=== PATIENT | male | born 1960 | race Caucasian/White ===

== ENCOUNTER 2018-05-20 17:47 | Emergency (ER) | payer OTHER, SELFPAY ==
[2018-05-20 17:48] VITALS: BP 158/102; PULSE 97; RESP 20; TEMP 36.3; O2SAT 96; BMI 31.8
--- NOTE | 2018-05-20 20:16 | ED_ITS ---
HPI - Extremity Problem <Viviane Patel PA-C - Last Filed: 05/20/18 22:29> General Chief complaint: Extremity Problem,Nontraumatic Stated complaint: THINKS INFECTION IN LT ELBOW Time Seen by Provider: 05/20/18 19:51 Source: patient Mode of arrival: ambulatory Limitations: no limitations History of Present Illness HPI Narrative: this 57-year-old gentleman comes in due to concern for skin infection in the left elbow. He states that he noticed a little puncture wound there and some warmth and pain last night, along with increasing redness today. He states that the pain is better now and not really bothersome today. He is not having difficulty moving the elbow. He states he has not had fever. He feels a little bit tired but otherwise is feeling normal. 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 He is healthy aside from borderline hypertension. He states that he did have a right knee cellulitis once where he had MRSA and needed surgical debridement, however this was after he contracted an infection in the [place]. No recent travel or known exposures. Related Data Previous Rx's Medication Instructions Recorded doxycycline monohydrate 100 mg PO BID 9 Days #18 cap 05/20/18 Allergies Allergy/AdvReac Type Severity Reaction Status Date / Time No Known Drug Allergies Allergy Verified 05/20/18 17:52 Exam <Viviane Patel PA-C - Last Filed: 05/20/18 22:29> Narrative Exam Narrative: GENERAL APPEARANCE: Patient sitting comfortably, in no distress. LUNGS: Clear to auscultation bilaterally. HEART: Rate and rhythm regular without murmur, normal S1 and S2, no S3 or S4. DERMATOLOGIC: Left posterior upper extremity there is a warm irregular Patch of erythema extending over the elbow. This is only on the posterior surface. There is a small scabbed puncture in the center. Area is slightly tender. No palpable circumscribed fluctuance or induration. 13 cm at longest diameter. Margins inked MS: Full AROM L. elbow without tenderness NEUROVASCULAR: L. hand warm and pink, sensation grossly intact Initial Vital Signs Initial Vital Signs: Vital Signs Temperature 97.4 F L 05/20/18 17:48 Pulse Rate 97 H 05/20/18 17:48 Respiratory Rate 20 05/20/18 17:48 Blood Pressure 158/102 H 05/20/18 17:48 Pulse Oximetry 96 05/20/18 17:48 <Roddy Beach DO - Last Filed: 05/21/18 00:25> Initial Vital Signs Initial Vital Signs: Vital Signs Temperature 97.4 F L 05/20/18 17:48 Pulse Rate 97 H 05/20/18 17:48 Respiratory Rate 20 05/20/18 17:48 Blood Pressure 158/102 H 05/20/18 17:48 Pulse Oximetry 96 05/20/18 17:48 Course <Viviane Patel PA-C - Last Filed: 05/20/18 22:29> Orders Ordered: Discontinued Medications Doxycycline Hyclate (Vibramycin) 100 mg PO NOW ONE Stop: 05/20/18 20:13 Last Admin: 05/20/18 20:19 Dose: 100 mg Vital Signs - 8 hr 05/20/18 17:48 05/20/18 20:21 Temperature 97.4 F L Pulse Rate 97 H 85 Respiratory Rate 20 16 Blood Pressure 158/102 H 169/93 H Pulse Oximetry 96 96 <Roddy Beach DO - Last Filed: 05/21/18 00:25> Orders Ordered: Discontinued Medications Doxycycline Hyclate (Vibramycin) 100 mg PO NOW ONE Stop: 05/20/18 20:13 Last Admin: 05/20/18 20:19 Dose: 100 mg Vital Signs - 8 hr 05/20/18 17:48 05/20/18 20:21 Temperature 97.4 F L Pulse Rate 97 H 85 Respiratory Rate 20 16 Blood Pressure 158/102 H 169/93 H Pulse Oximetry 96 96 Discharge Plan Departure Patient Disposition: Home Clinical Impression: Cellulitis of left arm Discharge Date/Time: 05/20/18 20:33 Interventions: ED Discharge Assessment Last Done: 05/20/18 20:21 Instructions: DI for Cellulitis -- Adult Activity Restrictions/Additional Instructions: you should get to the closest emergency room as we talked about if you have rapidly spreading redness, increased pain, swelling, high fever or difficulty moving or elbow. Otherwise, please take your 2nd dose of antibiotic in the morning and continue this twice daily (make sure you stop at a pharmacy in the morning and fill the rest of the prescription ). Avoid over use of your elbow. Please take ibuprofen 6-800 mg every 8 hr, or Aleve, 1-2 tabs every 12 hr for pain and swelling. Prescriptions: New doxycycline monohydrate 100 mg capsule 100 mg PO BID 9 Days Qty: 18 RF: 0 Referrals: [facility] [Provider Group] <Roddy Beach, - Last Filed: 05/21/18 00:25> Cosign ED Attending Jarrod Attestation: I was available for consultation during this patient's emergency department encounter
[2018-05-20] MEDS: DOXYCYCLINE HYCLATE 100 MG TABLET PO (20:19)
[2018-05-20 20:21] VITALS: BP 169/93; PULSE 85; RESP 16; O2SAT 96
== END 2018-05-20 20:33 | disposition home or self-care (01) ==
PROVIDERS: Emergency Provider Internal Medicine
DX: L03.114 Cellulitis of left upper limb (principal)
CPT/HCPCS: 99282; 99283

== ENCOUNTER → 2020-06-02 13:37 | Outpatient (CLI) | payer OTHER, SELFPAY ==
[2020-06-04 08:26] LABS: COVID19 Sendout Not Detected (Not Detect)
== END ==
PROVIDERS: Visit Provider Physician Assistant
DX: Z11.59 Encounter for screening for other viral diseases (principal)
CPT/HCPCS: 87635

== ENCOUNTER 2022-08-08 04:01 | Emergency (ER) | payer OTHER, SELFPAY ==
[2022-08-08 04:21] VITALS: BP 209/82; PULSE 90; RESP 18; TEMP 36.3; O2SAT 96; BMI 31.1
--- NOTE | 2022-08-08 07:54 | DI.RAD.S_ITS ---
PROCEDURE: XR ABDOMEN MIN 2V INDICATIONS: constipation TECHNIQUE: 2 views of the abdomen were acquired. COMPARISON: [facility], MR, MR PELVIS PROSTATE SCREENING PROTOCOL, 04/02/2022, 15:01. FINDINGS: Surgical changes and devices: None. Bowel: No pneumoperitoneum. The bowel gas pattern is normal. There is a moderate to prominent amount of stool seen within the colon. Soft tissues: No masses; visualized solid organ contours appear normal in size. No suspicious abdominal calcifications. Bones: No suspicious bony abnormalities. Age-appropriate bony degenerative changes are seen. IMPRESSION: There is a moderate amount of stool seen within the colon, which is consistent with the given history of constipation. Dictated by: Jon Gillette M.D. on 08/08/2022 at 7:43 Approved by: Jon Gillette M.D. on 08/08/2022 at 7:44
[2022-08-08 08:07] VITALS: BP 172/82; PULSE 82; TEMP 37.1; O2SAT 95
--- NOTE | 2022-08-08 08:30 | ED_ITS ---
HPI - Abdominal Pain General Chief Complaint: Abdominal Pain Stated Complaint: Unable to have a bowel movement Time Seen by Provider: 08/08/22 07:54 Source: patient Mode of arrival: Ambulatory History of Present Illness HPI narrative: This is a 61-year-old male with history of hypertension on chlorothiazide. Patient presents with no bowel movement since , patient took 2 senna on Tuesday without any change. He has been taking Excedrin and ibuprofen with increasing pain he has not been able to control. He has not had a bowel m ovement he passing gas. He describes pain more in the left flank and left side of his abdomen it is not on the right. He thinks he might be little bit more distended. He did vomit on Tuesday after taking a bottle of magnesium citrate. Patient has had occasional issues but not persistently. He states a couple months ago he took senna and it resolved his symptoms. Patient denies any prior surgeries. No allergies to medications. No tobacco he drinks a beer daily, no illicit other than occasional marijuana. Related Data Previous Rx's Medication Instructions Recorded oxycodone 5 mg tablet 5 mg PO Q6H PRN pain #10 tabs 08/08/22 tamsulosin 0.4 mg capsule (Flomax) 0.4 mg PO DAILY #7 caps 08/08/22 Allergies Allergy/AdvReac Type Severity Reaction Status Date / Time No Known Drug Allergies Allergy Verified 05/20/18 17:52 Review of Systems Review of Systems ROS Unobtainable: All systems reviewed & are unremarkable except as noted in HPI and below Patient History Surgical History S/P right knee surgery Social History Smoking Status: Never smoker Smoking Status: Never smoker alcohol intake frequency: a few times a month Substance Use Type: does not use Exam Narrative Exam Narrative: GENERAL: Alert and oriented x three, [id number] distress HEENT: Head normocephalic, atraumatic, EOMI, pupils reactive, face symmetric, moist mucous membranes NECK: Supple, full range of motion CARDIOVASCULAR: Regular rate and rhythm without murmurs, rubs or gallops. RESPIRATORY: Breath sounds equal bilaterally, no wheezes rales or rhonchi. ABDOMEN: Soft, nontender. Patient is mildly distended. Hypoactive bowel sounds all 4 quadrants. No guarding or rebound, rigidity, no mass : No CVA tenderness EXTREMITIES: Normal range of motion, no clubbing or edema. Neurovascularly intact NEUROLOGICAL: Cranial nerves II through XII grossly intact. Moving all extremities SKIN: Warm, dry, no petechiae, no rashes or lesions. Initial Vital Signs Initial Vital Signs: Vital Signs Temperature 97.4 F L 08/08/22 04:21 Pulse Rate 90 08/08/22 04:21 Respiratory Rate 18 08/08/22 04:21 Blood Pressure 209/82 H 08/08/22 04:21 Pulse Oximetry 96 08/08/22 04:21 Oxygen Delivery Method 08/08/22 04:21 Course Orders Ordered: ED Orders 08/08/22 07:54 XR abdomen min 2V Stat 08/08/22 08:50 CT abdomen pelvis w con Stat 08/08/22 09:12 Complete Blood Count AUTO DIFF Stat Comprehensive Metabolic Panel Stat Lipase Stat 08/08/22 09:28 EKG-12 Lead Stat 08/08/22 12:21 Urine Microscopic Stat Discontinued Medications Sodium Chloride (Normal Saline 0.9%) 1,000 mls @ 1,000 mls/hr IV BOLUS ONE Stop: 08/08/22 09:49 Last Infusion: 08/08/22 11:11 Dose: 0 mls/hr Documented By: Admin: 08/08/22 09:58 Dose: 1,000 mls/hr Documented By: NR Ketorolac Tromethamine (Ketorolac 30 Mg/Ml Vial) 15 mg IV NOW ONE Stop: 08/08/22 08:51 Last Admin: 08/08/22 09:58 Dose: 15 mg Documented By: NR Ondansetron HCl (Ondansetron 4 Mg/2 Ml Inj) 4 mg IV NOW ONE Stop: 08/08/22 08:51 Last Admin: 08/08/22 09:58 Dose: 4 mg Documented By: NR Tamsulosin HCl (Tamsulosin 0.4 Mg Capsule) 0.4 mg PO NOW ONE Stop: 08/08/22 11:36 Last Admin: 08/08/22 12:33 Dose: 0.4 mg Documented By: AT Consultations Consultation #1: Dr. Neil, urology. Feels we can dispo patient home today he recommends waiting any additional nephrotoxic agents, hydrating at home, tamsulosin, lying on his left side follow-up with the office 1st thing in the morning. He recommends only clears after midnight and if patient is still symptomatic they will possibly take to the OR for stent tomorrow. Patient is to call the office after 830 or 9:00 a.m. with strict return precautions for the ER Time: 12:31 Vital Signs Vital signs: Vital Signs - 8 hr 08/08/22 08:07 08/08/22 12:34 Temperature 98.7 F Pulse Rate 82 75 Respiratory Rate 18 Blood Pressure 172/82 H 159/70 H Pulse Oximetry 95 99 Oxygen Delivery Method Room Air Room Air MDM - Abdominal Pain Lab Data Result diagrams: 08/08/22 09:12 08/08/22 09:12 Labs: Lab Results 08/08/22 08/08/22 08/08/22 Range/Units 09:12 09:12 12:21 WBC 11.2 H (4.5-11.0) X10^3/uL RBC 5.29 (4.5-5.9) X10^6/uL Hgb 14.8 (13.5-17.5) g/dL Hct 43.3 (41-53) % MCV 81.8 (80-100) fL MCH 28.0 (26-34) PG MCHC 34.2 (30-36) % RDW 14.0 (11.6-14.8) % Plt Count 169 (150-400) X10^3/uL Neut % (Auto) 85.3 H (50-75) % Lymph % (Auto) 7.1 L (25-40) % [place] % (Auto) 7.2 (3-14) % Eos % (Auto) 0.0 L (2-4) % Baso % (Auto) 0.4 (0-2) % Neut # (Auto) 9500 H (9700-0750) /uL Lymph # (Auto) 800 L (2239-3007) /uL [place] # (Auto) 800 (0-900) /uL Eos # (Auto) 0 (0-450) /uL Baso # (Auto) 0 (0-100) /uL Sodium 135 L (137-145) mmol/L Potassium 4.2 (3.4-5.1) mmol/L Chloride 92 L (98-107) mmol/L Carbon Dioxide 33 H (22-32) mmol/L BUN 23 H (9-20) mg/dL Creatinine 2.04 H (0.66-1.25) mg/dL Estimated GFR 37 L (>60) mL/min BUN/Creatinine Ratio 11.3 (6-22) Glucose 106 (80-110) mg/dL Calcium 9.0 (8.4-10.2) mg/dL Total Bilirubin 1.7 H (0.2-1.3) mg/dL AST 60 H (17-59) IU/L ALT 85 H (<50) IU/L Alkaline Phosphatase 60 (38-126) U/L Total Protein 7.9 (6.3-8.2) g/dL Albumin 4.5 (3.5-5.0) g/dL Globulin 3.4 (1.7-4.1) g/dL Albumin/Globulin Ratio 1.3 (1.0-2.8) Lipase 29 (23-300) U/L Urine RBC 0-1/hpf (0-5/HPF) Urine WBC 0-1/hpf (0-5/HPF) Urine Bacteria None seen (None) Ur Culture Indicated? Cult not indicated Point of care testing: Urine Dip Bedside Urine Glucose Negative Bedside Urine Bilirubin - Negative Bedside Urine Ketone - Negative Urine Specific [place] 1.015 Bedside Urine Occult Blood - Negative Bedside Urine pH 5.5 Bedside Urine Protein - Negative Bedside Urine Urobilinogen - Negative Bedside Urine Nitrite - Negative Bedside Urine Leukocytes - Negative Esterase Imaging Data Abdominal x-ray: My Impression: Patient does not have air-fluid levels. CT scan - abdomen/pelvis: Radiologist's Impression: Jose M Ponce??61??M??1960 ? Allergy/Adv: No Known Drug Allergies Close Abdomen/Pelvis CT (Signed) Jon Gillette - 08/08/22 Abdomen X-Ray (Signed) Jon Gillette - 08/08/22 [facility]?[address] [address] [address] Scan Report Signed Patient: Jose M Ponce MR#: [id number] : 1960 Acct:[id number] Age/Sex: 61 / M Date of Service: 08/08/22 Loc: ED Accession Number: [id number] ?? Procedure: CT abdomen pelvis w con Ordering Provider: Tiny Rae D.O. PROCEDURE:? CT ABDOMEN PELVIS W CON ? INDICATIONS:? Left back/abd pain, constipation, vomited ? TECHNIQUE:? After the administration of oral and IV contrast, axial sections were acquired from the lung bases to the pubic symphysis.? Coronal and sagittal reformats were performed.? For radiation dose reduction, the following was used:? automated exposure control, adjustment of mA and/or kV according to patient size. ? COMPARISON:? [facility], CR, XR ABDOMEN MIN 2V, 08/08/2022, 8:09. ? FINDINGS:? Image quality:? Excellent.? ? Lung bases:? Unremarkable.? ? Heart:? No significant findings. ? ? ABDOMEN: Liver:? An enlarged, fatty infiltrated liver can be seen.? No focal liver lesion is seen. Gallbladder:? Unremarkable.? ? Biliary ducts:? Unremarkable.? ? Pancreas:? Unremarkable.? ? Spleen:? The spleen is enlarged, measuring 17 cm AP.? No focal splenic lesion is seen. ? Adrenal Glands:? Unremarkable.? ? Kidneys and Ureters:? There is right-sided hydronephrosis, without hydroureter.? On the left, there is moderate prominent hydronephrosis.? There is an obstructing stone seen at the left ureteropelvic junction, on series 6, image 35 and on series 4 image 40 measuring 4 mm and 300 Hounsfield units.? Left-sided perinephric fat stranding can be seen.? Nonobstructing left-sided kidney stones are seen inferiorly, measuring up to 5 mm and 400 Hounsfield units. ? Stomach and Bowel:? Stomach, small bowel loops, and colon are unremarkable.? Peritoneum:? No abnormal intraperitoneal fluid.? No free air.? ? Ventral Wall: ? No hernia.? Abdominal Nodes:? No retroperitoneal or mesenteric adenopathy by size criteria.? Vessels:? Aorta and inferior vena cava are normal in size.? ? PELVIS: Pelvic Organs:? The prostate is enlarged, measuring 6.3 cm transversely. Bladder:? Unremarkable.? ? Pelvic Nodes: No enlarged lymph nodes.? Miscellaneous:? Bilateral fat containing inguinal hernias are seen, right larger than left. ? Bones:? There is focal L5-S1 degenerative change seen.? Milder degenerative changes are seen elsewhere.? ? ? IMPRESSION:? ? There is an obstructing 4 mm stone seen within the left proximal ureter, with associated moderate to severe left-sided hydronephrosis and perinephric fat stranding. ? Nonobstructing left-sided kidney stones are also seen. ? There is moderate right-sided hydronephrosis seen, without a cause of obstruction seen. ? ? Additional findings: Enlarged, fatty liver Splenomegaly Focal L5-S1 degenerative change Enlarged prostate Bilateral fat containing inguinal hernias ? Dictated by: Jon Gillette M.D. on 08/08/2022 at 10:12 ? ? Approved by: Jon Gillette M.D. on 08/08/2022 at 10:21?? ECG Data Attestation: I personally reviewed and interpreted this ECG as follows: Interpretation: Ventricular rate of 72 PA 156 QRS of 94 and QTC of 418. No acute ST elevation depression noted. MDM Narrative Medical decision making narrative: This is a 61-year-old male with what sounds like constipation but has had 1 episode of vomiting, his pain is also more localized to the left side making me question if there are other causes. Particularly if his pain is also in the flank after evaluation plan for labs, CT abdomen pelvis. Patient's labs show acute kidney injury elevated BUN, bilirubin and LFTs are also elevated lipase is normal. CT abdomen pelvis shows a left-sided kidney stone with moderate hydro and some right hydro but no kidney stone. Patient has enlarged prostate but not clearly obstructed. Patient's pain was much improved he received Toradol before his labs had resulted. Patient is much more comfortable at this time his urine does not show signs infection, spoke with Dr. Neil with Urology plan to continue with pain management but avoiding nephrotoxic agents, hydration, tamsulosin, patient is still on his left side and call the office 1st thing in the morning they may take him for ureteral stent in the morning. Patient does not appear to have an infection or septic obstructed stone feel he is safe for discharge home tonight with short follow-up tomorrow. Patient is aware that he is to avoid any solids and be clear liquids only after midnight. Patient and I did discuss keeping him for observation overnight and into tomorrow but he feels comfortable returning home and I think he would be much more comfortable. He is aware of strict return precautions and reasons to return if he is having increasing issues. Discharge Plan Departure Patient Disposition: Home Clinical Impression: Kidney stone on left side, Acute kidney injury, Elevated liver enzymes Instructions: DI for Kidney Stones Activity Restrictions/Additional Instructions: Follow-up tomorrow with Dr. Neil the urologist. Please call around 8:30 or 9:00 a.m. to the office, let them know if you are still having symptoms as Dr. Neil will likely take you to the OR to place a ureteral stent to help treat your kidney stone and hydroureter. If your symptoms have totally resolved they will still need to have your labs rechecked. Your kidney function is decreased today some of this is likely from some dehydration but also from the NSAIDs you have been taking as well as the kidney stone on your left side causing your pain. Your liver enzymes are elevated today this is likely not secondary to your kidneys and should be followed up with her physician for recheck and repeat labs in the next 1 week. Take Flomax daily until gone. Avoid NSAIDs such as ibuprofen, Advil, naproxen or similar medications sees or hard on your kidneys. Can take Tylenol up to a 1000 mg every 6 hours as needed for pain. If in adequate you can take 1-2 tablets of oxycodone every 6 hours. This medication can make you sleepy do not drive, perform hazardous activities or make any major decisions while taking it. This medication will make you constipated please take a stool softener such as Colace once to twice daily until stools are soft and regular. [facility] [place] Please return for fevers, worsening abdominal back or flank pain, persistent vomiting, if you are unable to tolerate oral medication or fluids, inability to urinate, black or bloody stools, passing out or other new or concerning changes. Prescriptions: New tamsulosin [Flomax] 0.4 mg capsule 0.4 mg PO DAILY Qty: 7 0RF oxycodone 5 mg tablet 5 mg PO Q6H PRN (Reason: pain) Qty: 10 0RF Referrals: Consuelo Neil MD [Physician] - Karan Yuen DO [Primary Care Provider] - Visit Report Forms: Patient Portal/API
--- NOTE | 2022-08-08 08:50 | DI.CT.S_ITS ---
PROCEDURE: CT ABDOMEN PELVIS W CON INDICATIONS: Left back/abd pain, constipation, vomited TECHNIQUE: After the administration of oral and IV contrast, axial sections were acquired from the lung bases to the pubic symphysis. Coronal and sagittal reformats were performed. For radiation dose reduction, the following was used: automated exposure control, adjustment of mA and/or kV according to patient size. COMPARISON: [facility], CR, XR ABDOMEN MIN 2V, 08/08/2022, 8:09. FINDINGS: Image quality: Excellent. Lung bases: Unremarkable. Heart: No significant findings. ABDOMEN: Liver: An enlarged, fatty infiltrated liver can be seen. No focal liver lesion is seen. Gallbladder: Unremarkable. Biliary ducts: Unremarkable. Pancreas: Unremarkable. Spleen: The spleen is enlarged, measuring 17 cm AP. No focal splenic lesion is seen. Adrenal Glands: Unremarkable. Kidneys and Ureters: There is right-sided hydronephrosis, without hydroureter. On the left, there is moderate prominent hydronephrosis. There is an obstructing stone seen at the left ureteropelvic junction, on series 6, image 35 and on series 4 image 40 measuring 4 mm and 300 Hounsfield units. Left-sided perinephric fat stranding can be seen. Nonobstructing left-sided kidney stones are seen inferiorly, measuring up to 5 mm and 400 Hounsfield units. Stomach and Bowel: Stomach, small bowel loops, and colon are unremarkable. Peritoneum: No abnormal intraperitoneal fluid. No free air. Ventral Wall: No hernia. Abdominal Nodes: No retroperitoneal or mesenteric adenopathy by size criteria. Vessels: Aorta and inferior vena cava are normal in size. PELVIS: Pelvic Organs: The prostate is enlarged, measuring 6.3 cm transversely. Bladder: Unremarkable. Pelvic Nodes: No enlarged lymph nodes. Miscellaneous: Bilateral fat containing inguinal hernias are seen, right larger than left. Bones: There is focal L5-S1 degenerative change seen. Milder degenerative changes are seen elsewhere. IMPRESSION: There is an obstructing 4 mm stone seen within the left proximal ureter, with associated moderate to severe left-sided hydronephrosis and perinephric fat stranding. Nonobstructing left-sided kidney stones are also seen. There is moderate right-sided hydronephrosis seen, without a cause of obstruction seen. Additional findings: Enlarged, fatty liver Splenomegaly Focal L5-S1 degenerative change Enlarged prostate Bilateral fat containing inguinal hernias Dictated by: Jon Gillette M.D. on 08/08/2022 at 10:12 Approved by: Jon Gillette M.D. on 08/08/2022 at 10:21
[2022-08-08 09:18] LABS: Add Manual Diff / Slide Review NO; Basophils Absolute Auto 0 /uL (0-100); Basophils Percent Auto 0.4 % (0-2); Eosinophils Absolute Auto 0 /uL (0-450); Hematocrit 43.3 % (41-53); Hemoglobin 14.8 g/dL (13.5-17.5); Lymphocytes Absolute Auto 800 /uL (1100-4500); Lymphocytes Percent Auto 7.1 % (25-40); Mean Corpuscular HGB Conc 34.2 % (30-36); Mean Corpuscular Volume 81.8 fL (80-100); Monocytes Absolute Auto 800 /uL (0-900); Monocytes Percent Auto 7.2 % (3-14); Neutrophils Absolute Auto 9500 /uL (1500-7000); Neutrophils Percent Auto 85.3 % (50-75); Platelet Count 169 X10^3/uL (150-400); Red Blood Cell Count 5.29 X10^6/uL (4.5-5.9); White Blood Cell Count 11.2 X10^3/uL (4.5-11.0)
[2022-08-08 09:29] LABS: Alanine Aminotransferase 85 IU/L (<50); Albumin 4.5 g/dL (3.5-5.0); Albumin Globulin Ratio 1.3 (1.0-2.8); Alkaline Phosphatase 60 U/L (38-126); Aspartate Aminotransferase 60 IU/L (17-59); BUN Creatinine Ratio 11.3 (6-22); Bilirubin Total 1.7 mg/dL (0.2-1.3); Blood Urea Nitrogen 23 mg/dL (9-20); Carbon Dioxide 33 mmol/L (22-32); Chloride 92 mmol/L (98-107); Estimated Glomerular Filt Rate 37 mL/min (>60); Globulin 3.4 g/dL (1.7-4.1); Glucose 106 mg/dL (80-110); HEMOLYSIS < 15 (0-50); Lipase 29 U/L (23-300); Potassium 4.2 mmol/L (3.4-5.1); Sodium 135 mmol/L (137-145); Total Protein 7.9 g/dL (6.3-8.2)
[2022-08-08] MEDS: KETOROLAC 30 MG/ML VIAL 15 MG IV (09:58)
[2022-08-08] MEDS: SODIUM CHLORIDE 0.9% 1,000 ML 1000 ML IV (09:58)
[2022-08-08] MEDS: ONDANSETRON 4 MG/2 ML INJ IV (09:58)
[2022-08-08] MEDS: TAMSULOSIN 0.4 MG CAPSULE PO (12:33)
[2022-08-08 12:34] VITALS: BP 159/70; PULSE 75; RESP 18; O2SAT 99
[2022-08-08 13:01] LABS: Bacteria Urine None Seen; Culture Indicated Urine Cult Not Indicated; RBC Urine 0-1/HPF (0-5/HPF); WBC Urine 0-1/HPF (0-5/HPF)
== END 2022-08-08 12:54 | disposition home or self-care (01) ==
PROVIDERS: Emergency Provider Emergency Medicine; PCP Family Medicine
DX: N20.0 Calculus of kidney (principal); N17.9 Acute kidney failure, unspecified; R74.8 Abnormal levels of other serum enzymes; R07.9 Chest pain, unspecified; N40.0 Benign prostatic hyperplasia without lower urinary tract symptoms
CPT/HCPCS: 74019; 74177; 80053; 81003; 81015; 83690; 85025; 93005; 93010; 96361; 96374; 96375; 99284; J1885; J2405; Q9967

== ENCOUNTER → 2022-09-29 12:26 | Outpatient (CLI) | payer OTHER, SELFPAY ==
--- NOTE | 2022-09-29 | DI.US.S_ITS ---
PROCEDURE: US RENAL COMPLETE INDICATIONS: calculus of ureter TECHNIQUE: Real-time scanning was performed of the kidneys and bladder, with image documentation. COMPARISON: [facility], CT, CT ABDOMEN PELVIS W CON, 08/08/2022, 10:37. FINDINGS: Kidneys: Kidneys are normal in size. Right kidney measures 11.5 cm long; left kidney measures 11.7 cm long. Right renal cortical thickness is 0.9 cm; left renal cortical thickness is there 0.7 cm. Renal cortical echotexture is normal. No nephrolithiasis. No suspicious solid mass lesions. There is moderate right-sided hydronephrosis seen. Mild hydronephrosis is seen on the left. A 9 mm nonobstructing shadowing left-sided kidney stone can be seen inferiorly. Bladder: Pre-void bladder volume is 122 mL. Post-void residual is 39 mL. A bladder stone is seen that measures up to 7 mm. On pre-void images, both ureteral jets are noted with color Doppler interrogation. (Of note, ureteral jets may not be detectable in up to 25% of cases due to insufficient differences in specific gravity between ureteral and bladder urine). Miscellaneous: No free pelvic fluid. There is a 1.4 cm right hepatic cyst seen. There is an enlarged prostate, measuring 6.4 x 6.2 x 6.5 cm. IMPRESSION: There is moderate right-sided hydronephrosis. Mild left-sided hydronephrosis is seen. 9 mm shadowing stone seen at the inferior pole of the left kidney. A 7 mm bladder stone can be seen. Moderate postvoid residual, 39 cc. Enlarged prostate. Additional findings: 1.4 cm right hepatic cyst Dictated by: Jon Gillette M.D. on 09/29/2022 at 13:58 Approved by: Jon Gillette M.D. on 09/29/2022 at 14:03
== END ==
PROVIDERS: PCP Family Medicine; Referring Provider Urology; Visit Provider Urology
DX: N13.2 Hydronephrosis with renal and ureteral calculous obstruction (principal); N21.0 Calculus in bladder; N40.0 Benign prostatic hyperplasia without lower urinary tract symptoms; K76.89 Other specified diseases of liver
CPT/HCPCS: 76770

== ENCOUNTER → 2023-02-16 10:15 | Outpatient (CLI) | payer OTHER, SELFPAY ==
--- NOTE | 2023-02-16 | DI.MRI.S_ITS ---
PROCEDURE: MR PELIS WO/W CON INDICATIONS: Elevated prostate specific antigen [PSA] TECHNIQUE: Coronal HASTE, axial T1 FSE with fat saturation, 3-plane nonbreath-hold T2 FSE. After the administration of contrast, dynamic axial, delayed axial and coronal VIBE or 2-D FLASH with fat saturation through the pelvis. Optional diffusion weighted imaging and ADC may be performed. COMPARISON: [facility], CT, CT ABDOMEN PELVIS W CON, 08/08/2022, 10:37. [facility], MR, MR PELVIS PROSTATE SCREENING PROTOCOL, 04/02/2022, 15:01. FINDINGS: Image quality: Prostate: Gland size is 7.2 x 5.8 x 5 cm; ellipsoid gland volume is 109 mL. No significant foci of intrinsic T1 hyperintensity to suggest hemorrhage. Multiple BPH nodules. Median lobe hypertrophy. Lesion size(s): Lesion 1: 0.6 cm, (12/22), not significantly changed. Lesion 2: 0.7 cm, (12/19), not significantly changed. Lesion location(s) (sector): Lesion 1: Left apex peripheral zone Lesion 2: Left apex transitional zone Lesion description: Lesion 1: Oval Lesion 2: Oval T2 weighted imaging (T2WI) morphology score: Lesion 1: 3 Lesion 2: 3 Diffusion weighted imaging (DWI) morphology score: Lesion 1: 3 Lesion 2: 3 Dynamic contrast enhancement (DCE): Lesion 1: Absent Lesion 2: Absent Lesion PI-RADS score: Lesion 1: PI-RADS 3 Lesion 2: PI-RADS 3 Genitourinary system: Small stones in the right urinary bladder. Distal ureters are non distended. Bowel and peritoneum: No pathologic free pelvic fluid. Inferior colon and small bowel loops are normal in caliber. A few colonic diverticuli. Nodes and vessels: No pelvic or inguinal adenopathy by size criteria. Iliac vessels are normal in caliber. Soft tissues: Fat containing inguinal hernias. Bones: Marrow demonstrates normal overall signal, without lesions to suggest metastases. IMPRESSION: 1. Marked prostatomegaly with median lobe hypertrophy. Small stones in the bladder. 2. No PI-RADS 4 or 5 observation for targeted biopsy. 3. Small PI-RADS 3 observations are unchanged. Dictated by: Robert Russo M.D. on 02/16/2023 at 12:19 Approved by: Robert Russo M.D. on 02/16/2023 at 12:37
== END ==
PROVIDERS: PCP Family Medicine; Referring Provider Urology; Visit Provider Urology
DX: N40.0 Benign prostatic hyperplasia without lower urinary tract symptoms (principal); N21.0 Calculus in bladder; K57.90 Diverticulosis of intestine, part unspecified, without perforation or abscess without bleeding; R97.20 Elevated prostate specific antigen [PSA]; Z80.42 Family history of malignant neoplasm of prostate
CPT/HCPCS: 72197

== ENCOUNTER 2025-06-13 06:43 | Day surgery (SDC) | payer OTHER, SELFPAY ==
--- NOTE | 2025-06-13 | PATH_ITS ---
[facility] Accession Number: [id number] No. of containers..02 Tissue . 01 Material submitted: . PART A: colon - CECAL POLYP PART B: colon - COLON, DESCENDING POLYP . 01 Diagnosis: A. CECAL POLYP: Tubular adenoma. . B. DESCENDING COLON POLYP: Tubular adenoma. MRV 06/24/2025 1244 Local . 01 Electronically signed: . Eli Rosen MD, Pathologist NPI- [id number] . 01 Gross description: . Received are two formalin-filled containers both labeled with the patient's name. . A. In a container labeled cecal polyp, is one fragment of [place], soft tissue which measures 0.6 x 0.5 x 0.3 cm. The specimen is totally submitted in cassette A1. B. In a container labeled descending colon polyp, is one fragment of [place], soft tissue which measures 0.4 x 0.3 x 0.3 cm. The specimen is totally submitted in cassette B1. ([id number]) /BRANT 06/21/2025 0027 Local . 01 Pathologist provided ICD-10: D12.0, D12.4 . 01 CPT . 834226, 316255 Specimen Comment: A courtesy copy of this report has been sent to [facility] Pathology Performed at: [address] [address], [place], [place] [id number] MD Maximo Mcgraw MD Phone: [phone]
--- NOTE | 2025-06-13 05:45 | P.HP_ITS ---
History of Present Illness History of Present Illness Date Patient Seen: 06/13/25 Time Patient Seen: 05:46 Chief complaint: Colonoscopy Narrative: 64yo M presents for screening colonoscopy this morning. Prior exam 13 years at [facility]. [facility] Surgical History S/P right knee surgery Meds Home Medications and Allergies Home Medications ?Medication ?Instructions ?Recorded ?Confirmed ?Type oxycodone 5 mg tablet 5 mg PO Q6H PRN pain #10 tab s 08/08/22 Rx tamsulosin 0.4 mg capsule (Flomax) 0.4 mg PO DAILY #7 caps 08/08/22 Rx sodium,potassium,mag sulfates 17.5 See Rx Instructions PO .COMPLEX 04/29/25 Rx gram-3.13 gram-1.6 gram oral soln #354 mL (Suprep Bowel Prep Kit) Allergies Allergy/AdvReac Type Severity Reaction Status Date / Time No Known Drug Allergies Allergy Verified 05/20/18 17:52 Exam Narrative Exam Narrative: Const General: healthy appearing, comfortable and no acute distress Orientation: alert and oriented x3 HENMT Ears: hearing grossly normal bilaterally Eyes Visual Oliveira: normal visual oliveira by confrontation Conjunctivae: conjunctivae normal Sclera: sclerae normal EOM: EOM intact bilaterally Resp Effort & Inspection: normal respiratory effort and able to speak in complete sentences Cardio Rate: regular rate GI Palpation: soft (NT) Extrem General: no pedal edema and no calf tenderness Assessment & Plan Assessment and plan (1) Encounter for screening colonoscopy: Status: Acute Plan Plan screening colonoscopy with possible polypectomy. The risks, benefits and options regarding the procedure were explained to the patient in detail. Risk discussion included but not limited to: bleeding, perforation, unable to reach cecum, missed lesion. The patient was encouraged to ask questions and they were answered to their satisfaction. The patient understands and is agreeable to proceed. Time-Based Coding :: [TOTAL MINUTES] spent with patient and on the chart (including review of chart, obtaining history, exam, reviewing outside data, placing orders, documenting exam and treatment plan, and counseling patient) on [DATE]. [employer] Document charge(s): Yes Charge Codes Inpatient/observation care including admit and discharge same day: [id number]
[2025-06-13 07:19] VITALS: BP 155/90; PULSE 80; RESP 14; TEMP 36.5; O2SAT 96
[2025-06-13] MEDS: LACTATED RINGERS 1,000 ML 42 ML IV (07:28)
[2025-06-13 07:37] LABS: Add Manual Diff / Slide Review NO; Hematocrit 46.7 % (41-53); Hemoglobin 16.2 g/dL (13.5-17.5); Lymphocytes Absolute Auto 1400 /uL (1100-4500); Mean Corpuscular HGB Conc 34.7 % (30-36); Mean Corpuscular Hemoglobin 28.4 PG (26-34); Mean Corpuscular Volume 81.7 fL (80-100); Platelet Count 183 X10^3/uL (150-400)
[2025-06-13 07:54] LABS: Blood Urea Nitrogen 19 mg/dL (9-20); Calcium 9.2 mg/dL (8.4-10.2); Carbon Dioxide 21 mmol/L (22-32); Chloride 104 mmol/L (98-107); Estimated Glomerular Filt Rate > 60 mL/min (>60); Glucose 94 mg/dL (70-99); HEMOLYSIS 48 (0-50); Potassium 4.4 mmol/L (3.4-5.1); Sodium 138 mmol/L (137-145)
--- NOTE | 2025-06-13 08:37 | PM.OP.COLON ---
Operative Date/Time/Diagnoses Date of procedure: 06/13/25 Time of procedure: 09:09 Pre-op diagnosis: Screening colonoscopy Post-op diagnosis: other (Two polyps, cecum, descending colon) Procedure & Clinicians Study performed: Screening colonoscopy Same procedure(s) as scheduled: Yes Indications: Due for screening Surgeon: aLzaro Sandoval Anesthesia Type: MAC +/- Procedure Notes SCOAP/Timeout: Performed Procedure in detail: Colonoscopy Patient placed in left lateral recumbent position. Time out was performed. Procedural sedation was administered by anesthesia. Examination began with a thorough inspection of the perianal area. There was no evidence of fissures, fistulae, external hemorrhoids or cutaneous malignancy. The colonoscope was then placed into the rectum and the lumen was insufflated with carbon dioxide. The scope was carefully advanced forward. Ultimately the cecum was intubated and confirmed by identification of the ileocecal valve, the appendiceal orifice and the confluence of the taenia. The scope was then slowly withdrawn examining the colon thoroughly in all directions. In the rectum, retroflexion of the scope was performed for inspection of the distal rectum and anal canal. ?Significant colonoscopy findings: ?1. Quality of the preparation-good, [place] 2-3, improved with irrigation/suction ?2. Two polyps, 3mm, sessile, benign appearing, one in cecum, one in ascending colon, both removed by cold snare and retrieved for pathology Scope withdrawal time: 9 minutes Findings: polyp(s) Specimen(s): other (polyps) Complications: none Impression: Two polyps, cecum, ascending colon, pathology pending Post-procedure Recommendations: Colonoscopy in 10 years Plan for aftercare: PACU then home Follow up: as needed Disposition: PACU
[2025-06-13 09:10] VITALS: BP 147/81; PULSE 71; RESP 16; TEMP 36.2; O2SAT 97
[2025-06-13 09:15] VITALS: BP 137/78; PULSE 74; RESP 16; O2SAT 98
[2025-06-13 09:18] VITALS: BP 134/74; PULSE 66; RESP 16; O2SAT 98
== END 2025-06-13 09:28 | disposition home or self-care (01) ==
PROVIDERS: Student in an Organized Health Care Education/Training Program; Referring Provider Surgery; Visit Provider Surgery
PROC: 0DJD8ZZ Inspection of Lower Intestinal Tract, Via Natural or Artificial Opening Endoscopic (ICD-10-PCS; CPT 45378; principal; 2025-06-13 08:15)
DX: Z12.11 Encounter for screening for malignant neoplasm of colon (principal); D12.0 Benign neoplasm of cecum; D12.4 Benign neoplasm of descending colon
CPT/HCPCS: 45385; 80048; 82962; 85025; J2704; J7120